=== PATIENT | female | born 1990 | race Caucasian/White ===

== ENCOUNTER → 2016-07-29 | Outpatient (CLI) | payer BC, OTHER | LOC: NM 08:20 | PROVIDERS: ATTEND General Practice | DX: R10.9 Unspecified abdominal pain (principal); K90.0 Celiac disease ==

== ENCOUNTER → 2017-11-10 | Outpatient (CLI) | payer BC | LOC: YCFC.O 16:14 | PROVIDERS: ATTEND Nurse Practitioner Family | DX: Z23 Encounter for immunization (principal) ==